=== PATIENT | male | born 1960 | race Hispanic/Latino ===

== ENCOUNTER 2025-06-03 09:40 | Inpatient (IN) ==
[2025-06-03] MEDS: LACTATED RINGERS IV ONE (10:08)
[2025-06-03 11:00] LABS: Basophils # (Auto) 0.07 K/mcL (0.00-0.30); Basophils % (Auto) 0.8 % (0.0-2.0); Eosinophils # (Auto) 0.16 K/mcL (0.00-0.70); Eosinophils % (Auto) 1.9 % (0.0-7.0); Hematocrit 35.1 % (40.1-51.0); Hemoglobin 11.6 g/dL (13.7-17.5); Lymphocytes # (Auto) 0.76 K/mcL (1.50-4.80); Lymphocytes % (Auto) 9.1 % (15.5-49.0); Mean Corpuscular HGB Conc 33.0 g/dL (31.0-36.0); Monocytes # (Auto) 0.63 K/mcL (0.10-0.90); Monocytes % (Auto) 7.5 % (1.0-12.0); Neutrophils % (Auto) 79.5 % (38.0-78.0); Platelet Count 271 K/mcL (140-440); RBC 3.68 M/mcL (4.63-6.08); WBC 8.4 K/mcL (4.5-11.0)
[2025-06-03 11:09] LABS: C-Reactive Protein 6.69 mg/dL (0.03-0.80)
[2025-06-03 13:16] LABS: ALT/SGPT 14 U/L (<40); AST/SGOT 19 U/L (<40); Albumin 3.5 gm/dL (3.2-5.2); Albumin/Globulin Ratio 0.8 (1.0-2.3); Alkaline Phosphatase 133 U/L (39-117); Anion Gap 12.0 (8.0-16.0); Bilirubin,Total 0.5 mg/dL (0.1-1.0); Blood Urea Nitrogen 28 mg/dL (8-23); Calcium 9.4 mg/dL (8.6-10.4); Carbon Dioxide 18 mmol/L (22-30); Chloride 99 mmol/L (96-108); Globulin 4.3 gm/dL (2.2-3.7); Glucose 231 mg/dL (70-105); Potassium 5.9 mmol/L (3.3-5.1); Sodium 129 mmol/L (133-145)
[2025-06-03] MEDS: PIPERACILLIN SODIUM/TAZOBACTAM 3.375 GM in DEXTROSE 5% IN WATER 50 ML IV ONE (14:37)
[2025-06-03] MEDS: 0.9 % SODIUM CHLORIDE 1,000 ML IV ONE (14:49)
[2025-06-03] MEDS ORDERED: METOCLOPRAMIDE 10 MG/2 ML VIAL IV PRN (15:00)
[2025-06-03] MEDS ORDERED: VANCOMYCIN PER PHARMACY IV SCH (15:00)
[2025-06-03] MEDS ORDERED: POTASSIUM CHLORIDE 20 MEQ TABLET PO PRN ×2 (15:00)
[2025-06-03] MEDS ORDERED: IPRATROPIUM/ALBUTEROL 3 ML AMPUL.NEB NEB PRN (15:00)
[2025-06-03] MEDS ORDERED: DEXTROSE 31 GM ORAL.SUSP PO PRN (15:00)
[2025-06-03] MEDS ORDERED: POTASSIUM CHLORIDE 40 MEQ in DEXTROSE 5% IN WATER 500 ML IV PRN (15:00)
[2025-06-03] MEDS ORDERED: SENNOSIDES 1 TABLET PO PRN (15:00)
[2025-06-03] MEDS ORDERED: ACETAMINOPHEN 325 MG TABLET PO PRN (15:00)
[2025-06-03] MEDS ORDERED: DEXTROSE 50% 50 ML VIAL IV PRN (15:00)
[2025-06-03] MEDS ORDERED: ONDANSETRON 4 MG/2 ML VIAL IV PRN (15:00)
[2025-06-03] MEDS ORDERED: MAGNESIUM SULFATE 2 GM/50 ML BAG IV PRN (15:00)
[2025-06-03] MEDS: VANCOMYCIN 2,000 MG in 0.9 % SODIUM CHLORIDE 500 ML IV ONE ×2 (15:10→15:11)
[2025-06-03 16:14] LABS: Estimated Average Glucose(eAG) 203.0 mg/dL; Hemoglobin A1C 8.7 % Hgb (4.0-6.0)
[2025-06-03] MEDS: TAMSULOSIN 0.4 MG CAPSULE PO SCH (16:51)
[2025-06-03] MEDS: INSULIN LISPRO 1 UNIT/0.01 ML UNIT SQ SCH (16:51)
[2025-06-03] MEDS: AMPICILLIN SODIUM/SULBACTAM NA 3 GM in 0.9 % SODIUM CHLORIDE 100 ML IV SCH (17:17)
[2025-06-03] MEDS: SODIUM BICARBONATE VIAL 150 MEQ in WATER FOR INJECTION,STERILE 850 ML IV ONE (18:17)
[2025-06-03] MEDS: DEXTROSE 50% 50 ML VIAL IV ONE (18:19)
[2025-06-03] MEDS: INSULIN REGULAR, HUMAN 1 UNIT/0.01 ML UNIT IV ONE (18:19)
[2025-06-03 18:54] LABS: POC Blood Urea Nitrogen 31.0 (6-20); POC CO2 16.0 (22-30); POC Calcium, Ionized 1.19 (1.16-1.32); POC Glucose, Random 194.0 (70-105)
[2025-06-03] MEDS: HEPARIN 5,000 UNIT/ML VIAL SQ SCH (20:40)
[2025-06-03] MEDS: DOCUSATE SODIUM 100 MG CAPSULE PO SCH (20:40)
[2025-06-03] MEDS: 0.9 % SODIUM CHLORIDE 10 ML SYRINGE IV SCH (20:47)
[2025-06-03 20:59] LABS: Anion Gap 13.0 (8.0-16.0); Blood Urea Nitrogen 29 mg/dL (8-23); Calcium 8.6 mg/dL (8.6-10.4); Carbon Dioxide 17 mmol/L (22-30); Chloride 110 mmol/L (96-108); Glucose 186 mg/dL (70-105); Potassium 5.5 mmol/L (3.3-5.1); Sodium 140 mmol/L (133-145)
[2025-06-03] MEDS: SODIUM BICARBONATE 50 MEQ/50 ML VIAL IV ONE ×2 (21:59→22:09)
[2025-06-03] MEDS: LACTATED RINGERS 1,000 ML IV SCH (23:40)
[2025-06-04 06:40] LABS: Basophils # (Auto) 0.06 K/mcL (0.00-0.30); Basophils % (Auto) 0.8 % (0.0-2.0); Eosinophils # (Auto) 0.23 K/mcL (0.00-0.70); Eosinophils % (Auto) 3.2 % (0.0-7.0); Hematocrit 30.5 % (40.1-51.0); Hemoglobin 10.0 g/dL (13.7-17.5); Lymphocytes # (Auto) 0.71 K/mcL (1.50-4.80); Lymphocytes % (Auto) 10.0 % (15.5-49.0); Mean Corpuscular HGB Conc 32.8 g/dL (31.0-36.0); Monocytes # (Auto) 0.64 K/mcL (0.10-0.90); Monocytes % (Auto) 9.0 % (1.0-12.0); Neutrophils % (Auto) 75.9 % (38.0-78.0); Platelet Count 224 K/mcL (140-440); RBC 3.14 M/mcL (4.63-6.08); WBC 7.1 K/mcL (4.5-11.0)
[2025-06-04 07:13] LABS: Vancomycin,Random 10.6 ug/mL
[2025-06-04 07:36] LABS: ALT/SGPT 12 U/L (<40); AST/SGOT 18 U/L (<40); Albumin 3.3 gm/dL (3.2-5.2); Albumin/Globulin Ratio 0.9 (1.0-2.3); Alkaline Phosphatase 117 U/L (39-117); Anion Gap 14.0 (8.0-16.0); Bilirubin,Direct < 0.2 mg/dL (0-0.3); Bilirubin,Total 0.4 mg/dL (0.1-1.0); Blood Urea Nitrogen 25 mg/dL (8-23); Calcium 9.2 mg/dL (8.6-10.4); Carbon Dioxide 17 mmol/L (22-30); Chloride 102 mmol/L (96-108); Globulin 3.8 gm/dL (2.2-3.7); Glucose 130 mg/dL (70-105); Phosphorous 3.8 mg/dL (2.5-4.5); Potassium 5.4 mmol/L (3.3-5.1); Sodium 133 mmol/L (133-145); Triglycerides 186 mg/dL (<150); Uric Acid 5.4 mg/dL (2.5-8.0)
[2025-06-04] MEDS ORDERED: LABETALOL HCL 20 MG/4 ML VIAL IV PRN (08:21)
[2025-06-04] MEDS: SODIUM ZIRCONIUM CYCLOSILICATE 10 GM PACKET PO ONE (08:52)
[2025-06-04] MEDS: VANCOMYCIN 1,750 MG in 0.9 % SODIUM CHLORIDE 500 ML IV SCH (10:21)
[2025-06-04] MEDS ORDERED: PIPERACILLIN SODIUM/TAZOBACTAM 3.375 GM in DEXTROSE 5% IN WATER 100 ML IV SCH ×2 (11:30)
[2025-06-04] MEDS: PIPERACILLIN SODIUM/TAZOBACTAM 4.5 GM in DEXTROSE 5% IN WATER 100 ML IV SCH (12:44)
[2025-06-04] MEDS ORDERED: PROPOFOL 200 MG/20 ML VIAL IV ONE (15:33)
[2025-06-04] MEDS ORDERED: LIDOCAINE 2% PF 5 ML VIAL ONE (15:33)
[2025-06-04] MEDS ORDERED: ONDANSETRON 4 MG/2 ML VIAL ONE (15:33)
[2025-06-04] MEDS ORDERED: NALOXONE HCL 0.4 MG/ML VIAL IV PRN (16:55)
[2025-06-04] MEDS ORDERED: LACTATED RINGERS 250 ML IV PRN (16:55)
[2025-06-04] MEDS ORDERED: IPRATROPIUM/ALBUTEROL 3 ML AMPUL.NEB NEB PRN (16:55)
[2025-06-04] MEDS ORDERED: MEPERIDINE 25 MG/ML VIAL IV PRN (16:55)
[2025-06-04] MEDS ORDERED: diphenhydrAMINE 50 MG/ML VIAL IV PRN (16:55)
[2025-06-04] MEDS ORDERED: ONDANSETRON 4 MG/2 ML VIAL IV PRN (16:55)
[2025-06-04] MEDS: ACETAMINOPHEN 1,000 MG/100 ML BAG IV ONE (17:10)
[2025-06-04] MEDS: fentaNYL 100 MCG/2 ML VIAL IV PRN (17:29)
[2025-06-04] MEDS: LACTATED RINGERS 1,000 ML IV SCH (17:47)
[2025-06-04] MEDS: 0.9 % SODIUM CHLORIDE 10 ML SYRINGE IV SCH (21:11)
[2025-06-05 10:39] LABS: ALT/SGPT 12 U/L (<40); AST/SGOT 15 U/L (<40); Albumin 3.4 gm/dL (3.2-5.2); Albumin/Globulin Ratio 1.0 (1.0-2.3); Alkaline Phosphatase 104 U/L (39-117); Anion Gap 11.0 (8.0-16.0); Bilirubin,Direct 0.2 mg/dL (<0.3); Bilirubin,Total 0.5 mg/dL (0.1-1.0); Blood Urea Nitrogen 18 mg/dL (8-23); Calcium 8.8 mg/dL (8.6-10.4); Carbon Dioxide 21 mmol/L (22-30); Chloride 97 mmol/L (96-108); Globulin 3.5 gm/dL (2.2-3.7); Glucose 159 mg/dL (70-105); Phosphorous 3.4 mg/dL (2.5-4.5); Potassium 5.8 mmol/L (3.3-5.1); Sodium 129 mmol/L (133-145); Triglycerides 192 mg/dL (<150); Uric Acid 4.9 mg/dL (2.5-8.0)
[2025-06-05 12:46] LABS: POC Blood Urea Nitrogen 18.0 (6-20); POC CO2 20.0 (22-30); POC Calcium, Ionized 1.17 (1.16-1.32); POC Glucose, Random 194.0 (70-105)
[2025-06-05] MEDS: SODIUM BICARBONATE 650 MG TABLET PO SCH (12:47)
[2025-06-05] MEDS: MEROPENEM 1 GM in 0.9 % SODIUM CHLORIDE 50 ML IV SCH (16:07)
[2025-06-05] MEDS ORDERED: MEROPENEM 0.5 GM in 0.9 % SODIUM CHLORIDE 50 ML IV SCH (21:00)
[2025-06-06 07:40] LABS: ALT/SGPT 10 U/L (<40); AST/SGOT 20 U/L (<40); Albumin 3.1 gm/dL (3.2-5.2); Albumin/Globulin Ratio 0.9 (1.0-2.3); Alkaline Phosphatase 105 U/L (39-117); Anion Gap 12.0 (8.0-16.0); Bilirubin,Direct < 0.2 mg/dL (0-0.3); Bilirubin,Total 0.5 mg/dL (0.1-1.0); Blood Urea Nitrogen 18 mg/dL (8-23); Calcium 9.0 mg/dL (8.6-10.4); Carbon Dioxide 19 mmol/L (22-30); Chloride 99 mmol/L (96-108); Globulin 3.6 gm/dL (2.2-3.7); Glucose 148 mg/dL (70-105); Phosphorous 4.3 mg/dL (2.5-4.5); Potassium 4.8 mmol/L (3.3-5.1); Sodium 130 mmol/L (133-145); Triglycerides 140 mg/dL (<150); Uric Acid 5.2 mg/dL (2.5-8.0)
[2025-06-06] MEDS: SODIUM BICARBONATE 650 MG TABLET PO SCH (08:51)
[2025-06-06] MEDS: SODIUM CHLORIDE 1 GM TABLET PO SCH (08:51)
[2025-06-06 11:28] LABS: Anion Gap 10.0 (8.0-16.0); Blood Urea Nitrogen 17 mg/dL (8-23); Calcium 9.3 mg/dL (8.6-10.4); Carbon Dioxide 20 mmol/L (22-30); Chloride 102 mmol/L (96-108); Glucose 136 mg/dL (70-105); Potassium 4.9 mmol/L (3.3-5.1); Sodium 132 mmol/L (133-145)
[2025-06-07 07:16] LABS: Anion Gap 8.0 (8.0-16.0); Blood Urea Nitrogen 14 mg/dL (8-23); Calcium 8.9 mg/dL (8.6-10.4); Carbon Dioxide 22 mmol/L (22-30); Chloride 103 mmol/L (96-108); Glucose 140 mg/dL (70-105); Potassium 4.3 mmol/L (3.3-5.1); Sodium 133 mmol/L (133-145)
[2025-06-07] MEDS: POLYETHYLENE GLYCOL 3350 17 GM PACKET PO PRN (08:07)
[2025-06-09] MEDS ORDERED: 0.9 % SODIUM CHLORIDE 10 ML SYRINGE IV PRN (16:06)
[2025-06-09] MEDS: HEPARIN 10 UNITS/ML 5ML FLUSH IV SCH ×2 (21:34→21:35)
[2025-06-09] MEDS: 0.9 % SODIUM CHLORIDE 10 ML SYRINGE IV SCH (21:51)
[2025-06-10] MEDS: hydrALAZINE 20 MG/ML VIAL IV PRN (07:49)
[2025-06-10] MEDS ORDERED: SODIUM CHLORIDE IRRIG SOLUTION 250 ML BOTTLE IRR ONE (12:14)
[2025-06-10] MEDS ORDERED: HEPARIN 5,000 UNIT/ML VIAL SQ ONE (12:14)
[2025-06-10 15:33] VITALS: TEMP 97.6; O2SAT 98
== END 2025-06-10 15:36 | disposition home or self-care (01) | DRG 617 ==
LOC: ED 09:40 → MEDSUR 15:53
PROVIDERS: ADMIT Internal Medicine; ATTEND Internal Medicine